=== PATIENT | female | born 1980 | race Caucasian/White ===

== ENCOUNTER 2017-04-23 10:46 | Inpatient (IN) | payer MEDICAID ==
[~2017-04-23] VITALS: Ht 157.5 cm; Wt 70.5 kg
[2017-04-23 12:05] VITALS: BP 104/62; PULSE 72; RESP 20
[2017-04-23 12:30] VITALS: Ht 157.5 cm; Wt 70.5 kg
[2017-04-23] MEDS ORDERED: LACTATED RINGER'S 1,000 ML IV SCH (12:31)
[2017-04-23] MEDS ORDERED: LACTATED RINGER'S 1,000 ML IV PRN (12:40)
[2017-04-23] MEDS ORDERED: LIDOCAINE 1% (MPF) 30 ML INJ INJ PRN (13:00)
[2017-04-23] MEDS ORDERED: OXYTOCIN 30 UNITS/LR 500 ML IV SCH ×2 (13:00)
[2017-04-23] MEDS ORDERED: BUTORPHANOL 2 MG INJ IV PRN (13:00)
[2017-04-23] MEDS ORDERED: CARBOPROST 250 MCG INJ IM PRN ×2 (13:00→15:30)
[2017-04-23] MEDS ORDERED: MISOPROSTOL 200 MCG TAB PR PRN ×2 (13:00→15:30)
[2017-04-23] MEDS ORDERED: IBUPROFEN 600 MG TAB PO PRN (13:00)
[2017-04-23] MEDS ORDERED: METHYLERGONOVINE 0.2 MG INJ IM PRN ×2 (13:00→15:30)
[2017-04-23] MEDS ORDERED: OXYTOCIN 30 UNITS/LR 500 ML IV PRN ×2 (13:00→15:30)
[2017-04-23 13:40] LABS: ADD SCAN DIFF NO
[2017-04-23 13:43] LABS: BASOPHILS % 0.2 % (0.0-2.0); EOSINOPHILS % 0.2 % (0.0-7.0); HEMATOCRIT 37.3 % (37.0-47.0); HEMOGLOBIN 12.2 g/dl (12.0-16.0); LYMPHOCYTES # 2.1 10^3/ul (0.8-2.9); LYMPHOCYTES % 18.1 % (15.0-51.0); MEAN CORPUSCULAR HEMOGLOBIN 31.9 pg (29.0-33.0); MEAN CORPUSCULAR HGB CONC 32.7 g/dl (32.0-37.0); MEAN CORPUSCULAR VOLUME 97.6 fl (82.0-101.0); MEAN PLATELET VOLUME 10.1 fl (7.4-10.4); MONOCYTE # 0.7 10^3/ul (0.3-0.9); MONOCYTES % 5.8 % (0.0-11.0); NEUTROPHIL # 8.6 10^3/ul (1.6-7.5); NEUTROPHILS % 74.3 % (39.0-77.0); PLATELET COUNT 243 10^3/UL (140-415); RED BLOOD COUNT 3.82 10^6/ul (4.20-5.40); RED CELL DISTRIBUTION WIDTH 13.7 % (11.5-14.5); WHITE BLOOD COUNT 11.6 10^3/ul (4.8-10.8)
[2017-04-23 14:02] LABS: INR 0.89; PT RATIO 0.9
[2017-04-23 14:03] LABS: PARTIAL THROMBOPLASTIN TIME 31.8 Sec (25.0-35.0)
[2017-04-23] MEDS ORDERED: LANOLIN 7 GM TUBE TOP PRN (15:30)
[2017-04-23] MEDS ORDERED: WITCH HAZEL/GLYCERIN PAD PR PRN (15:30)
[2017-04-23] MEDS ORDERED: BENZOCAINE 20% 56 ML SPRAY TOP PRN (15:30)
--- NOTE | 2017-04-23 15:41 | LDN ---
Date/Time of Note Date/Time of Note DATE: 04/23/17 TIME: 15:38 Delivery Summary of a viable baby girl weighing 3135 grams or 6# 15oz, 18" long, and with Apgars of 9/9. Weeks of Gestation 38w 4d Placenta Delivered: Spontaneously Meconium: none Episiotomy: No Perineal laceration: 2 Laceration repair: Seond degree perineal laceration and b/l vaaginal laceration repaired with 2-0 chromic. Anesthesia type: Local Estimated blood loss: 450 Sponge & Needle done & correct: Yes All needle counts correct: Yes Any foreign bodies felt in the: No (vagina) Problems: Infant Delivery Information Sex Infant Sex: female Apgars 1 Minute: 9 5 Minute: 9 Suctioning Nose & mouth suctioned at zonia: Yes Delee suction performed: No Umbilical Cord Umbilical cord with: 3 Vessels Cord presentations: no nuchal cord Cord Blood was obtained: Yes Mother & Baby Disposition Disposition Mom & Baby to Maternity; Good: Yes Baby to NICU: No GINETTE NUNEZ MD April 23, 2017 15:41
[2017-04-23] MEDS: OXYCODONE/ASPIRIN (4.88/325) TAB PO PRN (15:42)
--- NOTE | 2017-04-23 15:45 | HP ---
Date/Time of Note Date/Time of Note DATE: 04/23/17 TIME: 15:41 OB - History Hx of Present Free Text/Dictation 36 y.o. with an IUP at 38w 4d, h/o prior and scheduled for a repeat on 04/27 came in active labor at 7-8 cm and after a brief discussion opted to try for a . Estimated Due Date: May 03, 2017 : 2 Para: 1 Care: Good Care Ultrasounds: Normal mid trimester US Obstetrical Complications: None Past Family/Social History * Past Medical, Surgical, Family and Obstetric Histories reviewed from chart. Blood Type: O+ Rubella: immune RPR/VDRL: Negative GBS Status: Negative HBsAG: Negative OB Admission Exam Vital Signs Vital Signs Vital Signs Date Time Temp Pulse Resp B/P Pulse Ox O2 Delivery O2 Flow Rate FiO2 04/23/17 12:05 98.0 72 20 104/62 Room Air Physical Exam HEENT: WNL Heart: Rhythm Normal Lungs: Clear Abdomen: WNL Extremities: Normal Reflexes: Normal Cervical Dilatation: 7cm Effacement: 100% Station: -1 Membranes: Intact Amniotic Fluid: Clear Heart Rate: 120's Accelerations: Accelerations Present Decelerations: No Decelerations Varibility: Moderate Contractions on Admission: < 5 Minutes Apart Last 72 hours Lab Results CBC & BMP 04/23/17 12:40 OB Assessment/Plan Reason for admission: active labor Other Assessment: Previous x 1. Plan: Expectant Management Other plan: consent discussed and signed. GINETTE NUNEZ MD April 23, 2017 15:45
[2017-04-23 16:25] VITALS: BP 95/54; PULSE 64; RESP 18
[2017-04-23] MEDS: IBUPROFEN 600 MG TAB PO SCH ×2 (18:16→23:53)
[2017-04-23 19:35] VITALS: BP 99/56; PULSE 82; RESP 18
[2017-04-23] MEDS: LACTATED RINGER'S 1,000 ML IV* SCH ×2 (20:13→23:29)
[2017-04-24] VITALS: BP 94/52; PULSE 74; RESP 18
[2017-04-24 04:10] VITALS: BP 96/53; PULSE 73; RESP 18
[2017-04-24] MEDS: IBUPROFEN 600 MG TAB PO SCH ×4 (05:52→23:28)
[2017-04-24 06:30] LABS: ADD SCAN DIFF NO
[2017-04-24 06:46] LABS: BASOPHILS % 0.1 % (0.0-2.0); EOSINOPHILS # 0.1 10^3/ul (0.0-0.5); EOSINOPHILS % 0.4 % (0.0-7.0); HEMOGLOBIN 8.7 g/dl (12.0-16.0); LYMPHOCYTES # 2.1 10^3/ul (0.8-2.9); LYMPHOCYTES % 15.5 % (15.0-51.0); MEAN CORPUSCULAR HEMOGLOBIN 32.6 pg (29.0-33.0); MEAN CORPUSCULAR HGB CONC 33.5 g/dl (32.0-37.0); MEAN CORPUSCULAR VOLUME 97.4 fl (82.0-101.0); MEAN PLATELET VOLUME 9.8 fl (7.4-10.4); MONOCYTE # 0.9 10^3/ul (0.3-0.9); NEUTROPHIL # 10.2 10^3/ul (1.6-7.5); NEUTROPHILS % 75.7 % (39.0-77.0); PLATELET COUNT 196 10^3/UL (140-415); RED BLOOD COUNT 2.67 10^6/ul (4.20-5.40); RED CELL DISTRIBUTION WIDTH 13.6 % (11.5-14.5); WHITE BLOOD COUNT 13.5 10^3/ul (4.8-10.8)
[2017-04-24] MEDS: LACTATED RINGER'S 1,000 ML IV* SCH ×3 (07:29→23:29)
[2017-04-24 08:00] VITALS: BP 94/55; PULSE 71; RESP 18
--- NOTE | 2017-04-24 10:40 | QN ---
Documentation Comment ppd1 pt doing well vss exam wnl ap pt doing well continue care ALEXX PADILLA MD April 24, 2017 10:40
[2017-04-24 16:00] VITALS: BP 97/53; PULSE 84; RESP 18
[2017-04-24 20:00] VITALS: BP 89/50; PULSE 78; RESP 20
[2017-04-25 04:20] VITALS: BP 109/60; PULSE 77; RESP 20
[2017-04-25] MEDS: IBUPROFEN 600 MG TAB PO SCH ×3 (05:34→18:05)
[2017-04-25] MEDS: LACTATED RINGER'S 1,000 ML IV* SCH ×2 (07:29→15:29)
[2017-04-25] MEDS: OXYCODONE/ASPIRIN (4.88/325) TAB PO PRN (08:04)
[2017-04-25] MEDS ORDERED: DIPHTH/TET/ACEL PERTUSS (ADULT) 0.5 ML VIAL IM* ONE (09:00)
--- NOTE | 2017-04-25 13:55 | DS ---
Date/Time of Note Date/Time of Note DATE: 04/25/17 TIME: 13:54 Obstetrical Discharge Record Final Diagnosis Final Diagnosis: Term delivered Vaginal Delivery Obstetrical Delivery: Spontaneous Condition on Discharge Physical Assessment Voiding: Yes Bowel Movement: Yes Breast: Soft, non-tender Fundus: Firm Calf Tenderness: No Patient Condition: Good LOUIS QUEVEDO MD April 25, 2017 13:54
== END 2017-04-25 18:58 | disposition home or self-care (01) | DRG 775 ==
LOC: OBT 10:46 → L-D 10:46 → OBT 12:25 → L-D 12:26 → PP1 16:28
PROVIDERS: ADMIT Obstetrics & Gynecology; ATTEND Obstetrics & Gynecology
PROC: 10E0XZZ Delivery of Products of Conception, External Approach (ICD-10-PCS; principal; 2017-04-23)
PROC: 0KQM0ZZ Repair Perineum Muscle, Open Approach (ICD-10-PCS; 2017-04-23)
DX: O34.219 Maternal care for unspecified type scar from previous cesarean delivery (principal); O70.1 Second degree perineal laceration during delivery; Z3A.38 38 weeks gestation of pregnancy; Z37.0 Single live birth
CPT/HCPCS: 85025; 85610; 85730; 86592; 86850; 86900; 86901; 87340; 90715; G0463; J2590; J7120